=== PATIENT | male | born 1995 | race African-American/Black ===

== ENCOUNTER 2019-08-25 16:49 | Emergency (ER) | payer SELFPAY ==
[~2019-08-25] VITALS: Ht 170.2 cm; Wt 83.5 kg
[2019-08-25 16:55] VITALS: BP_SYST 123; BP_SYST 134; BP_DIAS 66
--- NOTE | 2019-08-25 17:01 | NUR ---
FLU SWAB COLLECTED
--- NOTE | 2019-08-25 17:04 | NUR ---
PT TO CHAIR D
--- NOTE | 2019-08-25 17:20 | NUR ---
23 y/o c/o fever x 2 days. no fever at triage. pt has productive cough. lung sounds clear all throughout. pt states he has nausea. no vomitng, diahrrea. stephen present. rates pain 8/10 and describes it as throbbing. pt took a tylenol for fever last night. no distress noted. no sob. nka. pmh: asthma.
[2019-08-25 18:14] VITALS: BP 123/66
--- NOTE | 2019-08-25 18:15 | NUR ---
Patient discharged with v/s stable. Written and verbal after care instructions given and explained. Patient alert, oriented and verbalized understanding of instructions. Ambulatory with steady gait. All questions addressed prior to discharge. ID band removed. Patient advised to follow up with PMD. Rx of acetaminophen, ibuprofen, promethazine given. Patient educated on indication of medication including possible reaction and side effects. Opportunity to ask questions provided and answered.
== END 2019-08-25 18:15 | disposition home or self-care (01) ==
LOC: MED 16:49
DX: J06.9 Acute upper respiratory infection, unspecified (principal); J45.909 Unspecified asthma, uncomplicated
CPT/HCPCS: 87804; 99283